=== PATIENT | male | born 1950 | race American Indian/Alaskan Native ===

== ENCOUNTER 2020-08-23 16:48 | Emergency (ER) | payer MEDICARE ==
[2020-08-23 17:20] LABS: Basophils % (Auto) 0.4 % (0.0-1.8); Eosinophils % (Auto) 0.3 % (0.0-4.3); Hemoglobin 14.2 gm/dl (11.8-15.2); Lymphocytes # (Auto) 0.9 K/mm3 (1.2-5.4); Lymphocytes % (Auto) 12.9 % (13.4-35.0); Mean Corpuscular HGB Conc 34 % (32-34); Mean Corpuscular Volume 87 fl (84-94); Monocytes # (Auto) 0.6 K/mm3 (0.0-0.8); Monocytes % (Auto) 9.4 % (0.0-7.3); Platelet Count 287 K/mm3 (140-440); Red Blood Count 4.86 M/mm3 (3.65-5.03); Red Cell Distribution Width 14.4 % (13.2-15.2)
[2020-08-23 17:39] LABS: Alanine Aminotransferase 18 units/L (7-56); Albumin 3.6 g/dL (3.9-5); BUN/Creatinine Ratio 11; Blood Urea Nitrogen 12 mg/dL (9-20); Calcium 8.4 mg/dL (8.4-10.2); Hemolysis Index 90
--- NOTE | 2020-08-23 22:10 | Emergency Department Report ---
ED Abdominal Pain HPI - General Chief Complaint: Abdominal Pain Stated Complaint: ABDOMINAL PAIN/BLOOD IN URINE PUI?: No Time Seen by Provider: 08/23/20 22:02 Source: patient, EMS (I reviewed EMS documentation) Mode of arrival: Wheelchair Limitations: No Limitations - History of Present Illness Initial Comments: Chief complaint: Abdominal pain blood in urine HPI: This is a 69-year-old male with history of NC, coronary disease status post 5 cardiac stents, hypertension, diabetes mellitus who presents with hematuria and right lower quadrant abdominal pain. Patient noticed blood in his urine last week. Over the last few days he has had severe 10/10 persistent right lower quadrant pain without radiation. Gradual onset of hematuria. Gradual onset of pain. He has poor appetite. He denies fever. He denies vomiting. D enies diarrhea. He is unable to sleep due to severe sharp 10 out of 10 pain. He was evaluated by his PCP Dr. Daugherty today. Dr. Daugherty referred him to the emergency department. Patient does not have a history of BPH, kidney stones, urinary tract infections. His only surgical history includes 5 cardiac stents. Cardiac interventions were performed in [place]. He and his moved to [place] December 2019. Patient takes daily aspirin. Patient does not take blood thinners. MD Complaint: abdominal pain -: Gradual, days(s) (Several days) Location: RLQ Radiation: none Migration to: no migration Severity: severe Severity scale (0 -10): 10 Quality: sharp Consistency: constant Improves With: nothing Worsens With: nothing Associated Symptoms: anorexia, other (Hematuria) - Related Data Previous Rx's Medication Instructions Recorded Last Taken Type Tamsulosin [Flomax] 0.4 mg PO QDAY 30 Days #30 cap 08/24/20 Unknown Rx cephALEXin [Keflex] 500 mg PO Q6HR 10 Days #40 capsule 08/24/20 Unknown Rx Allergies Allergy/AdvReac Type Severity Reaction Status Date / Time No Known Allergies Allergy Unverified 08/23/20 16:58 ED Review of Systems ROS: Stated complaint: ABDOMINAL PAIN/BLOOD IN URINE Other details as noted in HPI Comment: All other systems reviewed and negative Constitutional: denies: fever, malaise Respiratory: denies: cough, shortness of breath Cardiovascular: denies: chest pain Gastrointestinal: abdominal pain. denies: nausea, vomiting Genitourinary: hematuria ED Past Medical Hx - Past Medical History Previous Medical History?: Yes Hx Hypertension: Yes Hx Heart Attack/AMI: Yes Hx Diabetes: Yes - Surgical History Past Surgical History?: Yes Additional Surgical History: Cardiac stents - Social History Smoking Status: Never Smoker Substance Use Type: Alcohol - Medications Home Medications: Home Medications Medication Instructions Recorded Confirmed Last Taken Type Tamsulosin [Flomax] 0.4 mg PO QDAY 30 Days #30 cap 08/24/20 Unknown Rx cephALEXin [Keflex] 500 mg PO Q6HR 10 Days #40 capsule 08/24/20 Unknown Rx ED Physical Exam - General Limitations: No Limitations General appearance: alert, in no apparent distress, other (Appears in pain appears uncomfortable in left lateral decubitus position) - Head Head exam: Present: atraumatic, normocephalic - Eye Eye exam: Present: normal appearance - ENT ENT exam: Present: mucous membranes moist - Neck Neck exam: Present: normal inspection, full ROM - Respiratory Respiratory exam: Present: normal lung sounds bilaterally. Absent: respiratory distress, wheezes, rales, stridor - Cardiovascular Cardiovascular Exam: Present: regular rate, normal rhythm, normal heart sounds. Absent: systolic murmur, diastolic murmur, rubs, gallop - GI/Abdominal GI/Abdominal exam: Present: soft, normal bowel sounds. Absent: distended, tenderness, guarding, rebound - Rectal Rectal exam: Present: deferred - Extremities Exam Extremities exam: Present: normal inspection - Neurological Exam Neurological exam: Present: alert, oriented X3 - Psychiatric Psychiatric exam: Present: normal affect, normal mood - Skin Skin exam: Present: warm, dry, intact, normal color. Absent: rash ED Course Vital Signs 08/23/20 08/23/20 16:56 23:20 Temperature 98.2 F Pulse Rate 74 Respiratory 18 18 Rate Blood Pressure 139/62 O2 Sat by Pulse 100 Oximetry ED Medical Decision Making - Lab Data Result diagrams: 08/23/20 17:01 08/23/20 17:01 - Radiology Data Radiology results: report reviewed, image reviewed CT abdomen pelvis wo con INDICATION / CLINICAL INFORMATION: Pt complains of R.L.Q. abd pain with "Gross" hematuria x 1 week.. TECHNIQUE: Axial CT imaging of abdomen and pelvis was obtained without contrast. Coronal and sagittal reformatted imaging obtained and reviewed. All CT scans at this location are performed using CT dose reduction for ALARA by means of automated exposure control. COMPARISON: None available. FINDINGS: CT abdomen without contrast demonstrates grossly normal appearance of the liver, spleen, pancreas, kidneys, and left adrenal gland. There is an enlarged fat-containing oval mass involving the right adrenal gland measuring 4.4 cm. The appearance is most suggestive of a benign adrenal gland adenoma. Calcific plaque is identified throughout the abdominal aorta and common iliac arteries but no evidence of aortic aneurysm. There are vascular calcifications within both kidneys but no visible intrarenal calculi or hydronephrosis. CT pelvis without contrast demonstrates normal appearance of the appendix. No pelvic mass, free fluid, or focal inflammatory changes noted. GI tract is grossly unremarkable. No obvious urinary bladder mass. Prostate gland is not abnormally enlarged. Visualized lung bases do not demonstrate any definitive acute pulmonary or pleural disease. Review of osseous structures demonstrates prominent degenerative change in both hip joints as well as mild multilevel degenerative disc disease. IMPRESSION: 1. No acute finding within the abdomen or pelvis to account for the patient's complaint of right lower quadrant pain and gross hematuria. 2. 4.4 cm benign appearing right adrenal gland mass. It is fat-containing and therefore most likely an adrenal gland adenoma. 3. Prominent calcific plaque noted thr oughout the abdominal aorta, common iliac arteries, and intrarenal arteries bilaterally. - Medical Decision Making 1. Abdominal pain renal colic and appendicitis has been ruled out with CT scan. No evidence of acute inflammatory process or obstructive process which would account for patient's discomfort. I suspect patient has urinary retention. He has not urinated in almost 20 hours. He stated that he is last urinated yesterday morning. He vehemently repeatedly refused Jaquez catheter which would provide relief and diagnosis. 2. Gross hematuria: Patient has not been able to provide a urine. He has repeatedly and vehemently refused Jaquez catheter. 3. Adrenal mass: Likely adenoma, defer to outpatient work-up. Patient will be treated for UTI and urinary tension with cephalexin and Flomax. He is welcome to return back to the emergency department once he who agrees to care suggested. Patient does not have any abdominal tenderness. He appears comfortable. No leukocytosis. No fever. Critical care attestation.: If time is entered above; I have spent that time in minutes in the direct care of this critically ill patient, excluding procedure time. ED Disposition Clinical Impression: History of hematuria, Right lower quadrant pain, Urinary retention Disposition: DC-01 TO HOME OR SELFCARE Is pt being admited?: No Does the pt Need Aspirin: No Condition: Stable Instructions: Acute Urinary Retention, Male, [id number], Hematuria, Adult, Abdominal Pain, Adult, [id number] Prescriptions: Tamsulosin [Flomax] 0.4 mg PO QDAY 30 Days #30 cap cephALEXin [Keflex] 500 mg PO Q6HR 10 Days #40 capsule Referrals: BARTOLO MÁRQUEZ MD [Staff Physician] - 3-5 Days
[2020-08-23] MEDS: MORPHINE 4 MG/1 ML INJ IV ONE (23:20)
[2020-08-23] MEDS: KETOROLAC 30 MG/1 ML INJ IV ONE (23:20)
[2020-08-23] MEDS: ONDANSETRON 4 MG/2 ML INJ IV ONE (23:20)
[2020-08-23] MEDS: SODIUM CHLORIDE 0.9% 1000 ML 1,000 ML IV ONE (23:21)
--- NOTE | 2020-08-24 00:14 | Cat Scan Report ---
CT abdomen pelvis wo con INDICATION / CLINICAL INFORMATION: Pt complains of R.L.Q. abd pain with "Gross" hematuria x 1 week.. TECHNIQUE: Axial CT imaging of abdomen and pelvis was obtained without contrast. Coronal and sagittal reformatte d imaging obtained and reviewed. All CT scans at this location are performed using CT dose reduction for ALARA by means of automated exposure control. COMPARISON: None available. FINDINGS: CT abdomen without contrast demonstrates grossly normal appearance of the liver, spleen, pancreas, ki dneys, and left adrenal gland. There is an enlarged fat-containing oval mass involving the right adre nal gland measuring 4.4 cm. The appearance is most suggestive of a benign adrenal gland adenoma. Calcific plaque is identified throughout the abdominal aorta and common iliac arteries but no evidenc e of aortic aneurysm. There are vascular calcifications within both kidneys but no visible intrarenal calculi or hydronephrosis. CT pelvis without contrast demonstrates normal appearance of the appendix. No pelvic mass, free fluid , or focal inflammatory changes noted. GI tract is grossly unremarkable. No obvious urinary bladder m ass. Prostate gland is not abnormally enlarged. Visualized lung bases do not demonstrate any definitive acute pulmonary or pleural disease. Review of osseous structures demonstrates prominent degenerative change in both hip joints as well as mild multilevel degenerative disc disease. IMPRESSION: 1. No acute finding within the abdomen or pelvis to account for the patient's complaint of right lowe r quadrant pain and gross hematuria. 2. 4.4 cm benign appearing right adrenal gland mass. It is fat-containing and therefore most likely a n adrenal gland adenoma. 3. Prominent calcific plaque noted throughout the abdominal aorta, common iliac arteries, and intrare nal arteries bilaterally. Signer Name: Anamaria Le MD Signed: 08/24/2020 12:09 AM Workstation Name: [id number]
[2020-08-24 03:23] VITALS: BP 160/91
[2020-08-24] MEDS: MORPHINE 4 MG/1 ML INJ IV ONE (03:23)
== END 2020-08-24 03:20 | disposition home or self-care (01) ==
LOC: ED 16:48
DX: R33.9 Retention of urine, unspecified (principal); I10 Essential (primary) hypertension; I25.2 Old myocardial infarction; E11.9 Type 2 diabetes mellitus without complications; Z79.899 Other long term (current) drug therapy
CPT/HCPCS: 36415; 74176; 80053; 82140; 85025; 96361; 96374; 96375; 99284; J1885; J2270; J2405; J7030